=== PATIENT | male | born 1960 | race Caucasian/White ===

== ENCOUNTER 2019-12-09 09:24 | Emergency (ER) | payer MEDICAID, OTHER ==
[~2019-12-09] VITALS: Ht 185.4 cm; Wt 127.0 kg
[2019-12-09 09:35] VITALS: BP 158/84
--- NOTE | 2019-12-09 09:37 | NUR ---
TRIAGE COMPLETE. VSS. TO LOBBY AWAITNG BED IN ED.
--- NOTE | 2019-12-09 09:40 | NUR ---
XR AT BEDSIDE.
--- NOTE | 2019-12-09 09:42 | NUR ---
Patient ambulated to bed 5. RN evaluating patient at bedside.
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
--- NOTE | 2019-12-09 12:40 | NUR ---
PATIENT LEFT WITHOUT BEING SEEN BY DR. TERRAZAS. NO FURTHER CARE PROVIDED FOR PATIENT.
--- NOTE | 2019-12-09 12:40 | NUR ---
PT LEFT AND WILL RETURN FOR XRAY RESULTS
--- NOTE | 2019-12-09 13:00 | NUR ---
PT CALLED AT 1300, DR TERRAZAS SPOKE WITH PT REGARDING XRAY RESULTS. PT STATES HE WILL RETURN
== END 2019-12-09 12:40 | disposition left against medical advice (07) ==
LOC: MED 09:24
DX: M79.601 Pain in right arm (principal); Z53.21 Procedure and treatment not carried out due to patient leaving prior to being seen by health care provider
CPT/HCPCS: 73130; Q0092

== ENCOUNTER 2019-12-10 10:38 | Emergency (ER) | payer OTHER ==
[~2019-12-10] VITALS: Ht 185.4 cm; Wt 127.0 kg
[2019-12-10 11:31] VITALS: BP 146/97
--- NOTE | 2019-12-10 13:24 | NUR ---
PT AMBULATED TO [facility]
--- NOTE | 2019-12-10 13:47 | NUR ---
applied thumb spica splint to right hand without any issues
[2019-12-10 13:52] VITALS: BP 146/97
--- NOTE | 2019-12-10 13:52 | NUR ---
Patient discharged with v/s stable. Written and verbal after care instructions given and explained. Patient alert, oriented and verbalized understanding of instructions. Ambulatory with steady gait. All questions addressed prior to discharge. ID band removed. Patient advised to follow up with PMD. Rx of NORCO, MOTRIN given. Patient educated on indication of medication including possible reaction and side effects. Opportunity to ask questions provided and answered.
== END 2019-12-10 13:52 | disposition home or self-care (01) ==
LOC: MED 10:38
DX: S62.501A Fracture of unspecified phalanx of right thumb, initial encounter for closed fracture (principal); V29.9XXA Motorcycle rider (driver) (passenger) injured in unspecified traffic accident, initial encounter; Y93.89 Activity, other specified; Y92.89 Other specified places as the place of occurrence of the external cause; Y99.8 Other external cause status
CPT/HCPCS: 99283

== ENCOUNTER 2020-04-20 20:30 | Emergency (ER) | payer OTHER ==
--- NOTE | 2020-04-20 20:40 | NUR ---
PATIENT LEFT WITHOUT BEING SEEN BY DR. VELOZ. NO FURTHER CARE PROVIDED FOR PATIENT.
== END 2020-04-20 20:40 | disposition left against medical advice (07) ==
LOC: MED 20:30
DX: Z53.21 Procedure and treatment not carried out due to patient leaving prior to being seen by health care provider (principal)